=== PATIENT | male | born 1995 | race Caucasian/White ===

== ENCOUNTER 2019-03-14 15:02 | Inpatient (IN) | payer SELFPAY ==
[2019-03-14 15:53] VITALS: BMI 27.8
--- NOTE | 2019-03-14 17:50 | HP ---
COWS - Scale Resting Pulse: 0= [place] 80 or Below Sweatin= Chills/Flushing Restless Observation: 1= Difficult to Sit Still Pupil Size: 1= Pupils >than Normal Bone or Joint Aches: 1= Mild Discomfort Runny Nose/ Eye Tearin= Runny Nose/Eyes GI Upset > 30mins: 2= Nausea/Diarrhea Tremor Observation: 1= Tremor [place], Not Seen Yawning Observation: 1= 1-2x During Session Anxiety or Irritability: 1=Feels Anxious/Irritable Goose Flesh Skin: 0=Smooth Skin COWS Score: 11 CIWA Score - Admission Criteria OASAS Guidelines: Admission for Medically Managed Detox: Requires at least one of the followin. CIWA greater than 12 2. Seizures within the past 24 hours 3. Delirium tremens within the past 24 hours 4. Hallucinations within the past 24 hours 5. Acute intervention needed for co occurring medical disorder 6. Acute intervention needed for co occurring psychiatric disorder 7. Severe withdrawal that cannot be handled at a lower level of care (continued vomiting, continued diarrhea, abnormal vital signs) requiring intravenous medication and/or fluids 8. Admitting History and Physical - Smoking History Smoking history: Current every day smoker Have you smoked in the past 12 months: Yes Aproximately how many cigarettes per day: 6 - Alcohol/Substance Use Hx Alcohol Use: No Admission ROS [facility] - [facility] Chief Complaint: Wei Emery is a 24 year old male who is presenting for heroin detox. Allergies/Adverse Reactions: Allergies Allergy/AdvReac Type Severity Reaction Status Date / Time No Known Allergies Allergy Verified 03/14/19 15:48 History of Present Illness: Wei Emery is a 24 year old male who is presenting for heroin detox. Heroin: 4-5 bags per day. Last use was this morning before arrival. Has been using for a year and a half. Denies history of overdose. Denies having a Narcan kit at home. Withdrawal symptoms: tremors, muscle aches, nausea,vomiting, diarrhea. Has never been on methadone program. Tried to be on methadone program but has been denied. Cocaine: half a gram. last Thursday. Uses when he has heroin withdrawal symptoms. Cannabis: former everyday user. Now uses approx 1 once weekly. Denies alcohol use. Has never been to detox. Was in [facility] for outpatient rehab. Sent over since he continued to use. Currently in legal trouble (drug related) and in [facility] for mandated treatment. Plans after detox: wants to go to rehab (inpatient), wants a methadone maintenance program. 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 Currently unemployed. Had money saved up that he was using to pay for his addiction. Lived with aunt. Family is supportive. Smokin-10 cigarettes per day. Counseled on Narcan use. Counseled on cigarette smoking quitting. Patient willing to go to rehab after detox to "get my life back and go back to my job". Has appointment at [facility]. Needs to go to make sure that it is an intake appointment for methadone maintenance program. Exam Limitations: No Limitations - Ebola screening Have you traveled outside of the country in the last 21 days: No Have you had contact with anyone from an Ebola affected area: No Patient History - Patient Medical History Hx Anemia: No Hx Asthma: No Hx Chronic Obstructive Pulmonary Disease (COPD): No Hx Cancer: No Hx Cardiac Disorders: No Hx Congestive Heart Failure: No Hx Hypertension: No Hx Hypercholesterolemia: No Hx Pacemaker: No HX Cerebrovascular Accident: No Hx Seizures: No Hx Dementia: No Hx Diabetes: No Hx Gastrointestinal Disorders: No Hx Liver Disease: No Hx Genitourinary Disorders: No Hx Sexually Transmitted Disorders: No Hx Renal Disease (ESRD): No Hx Thyroid Disease: No Hx Human Immunodeficiency Virus (HIV): No Hx Hepatitis C: No Hx Depression: Yes (no meds, never hospitalized) Hx Suicide Attempt: No Hx Bipolar Disorder: No Hx Schizophrenia: No - Patient Surgical History Past Surgical History: No - PPD History Previous Implant?: No Documented Results: Negative w/o proof PPD to be Administered?: Yes - Smoking Cessation Smoking history: Current every day smoker Have you smoked in the past 12 months: Yes Aproximately how many cigarettes per day: 10 Hx Chewing Tobacco Use: No Initiated information on smoking cessation: Yes 'Breaking Loose' booklet given: 03/14/19 - Substances abused Heroin Substance route: Inhalation Frequency: Daily Amount used: 7 bags Age of first use: 22 Date of last use: 03/14/19 Cocaine Substance route: Inhalation Frequency: 1-2 times per week Amount used: less than half a gram Age of first use: 22 Date of last use: 01/08/19 Marijuana/Hashish Substance route: Smoking Frequency: Daily Amount used: 4 joints Age of first use: 16 Date of last use: 01/10/19 Admission Physical Exam [facility] - Vital Signs Vital Signs: Vital Signs - 24 hr 03/14/19 15:47 Temperature 97.4 F L Pulse Rate 61 Respiratory 18 Rate Blood Pressure 125/63 - Physical General Appearance: Yes: Nourished, Mild Distress HEENTM: Yes: Normal ENT Inspection, Normal Voice, RAMEZ, Pharynx Normal Respiratory: Yes: Chest Non-Tender, Lungs Clear, Normal Breath Sounds, No Respiratory Distress, No Accessory Muscle Use Neck: Yes: No masses,lesions,Nodules, Trachea in good position Breast: Yes: Breast Exam Deferred Cardiology: Yes: Regular Rhythm, Regular Rate, S1, S2 Abdominal: Yes: Normal Bowel Sounds, Flat, Soft, Tenderness (mild tenderness in epigastric region) Back: Yes: Normal Inspection Musculoskeletal: Yes: full range of Motion, Gait Steady Extremities: Yes: Normal Capillary Refill, Normal Inspection, Normal Range of Motion, Non-Tender Neurological: Yes: workers compensation defense attorney II-XII NML intact, Fully Oriented, Alert, Motor Strength 5/5, Normal Mood/Affect, Normal Response Integumentary: Yes: Normal Color, Dry, Warm - Diagnostic (1) Cannabis dependence Current Visit: No Status: Chronic Comment: counseled cessation - to attend [facility] groups (2) Cocaine use Current Visit: No Status: Chronic Comment: counseled cessation (3) Nicotine dependence Current Visit: No Status: Chronic Qualifiers: Nicotine product type: cigarettes Substance use status: uncomplicated Qualified Code(s): F17.210 - Nicotine dependence, cigarettes, uncomplicated Comment: counseled cessation (4) Opioid dependence with withdrawal Current Visit: No Status: Chronic Comment: discussed various MATs - he wants to try suboxone - will give tabs as lease expensive- he has labwork to bring next visits- cont to attend [facility] groups - explained how to take the suboxone tablets - safekeeping emphasized (lives alone in a room) Cleared for Admission [facility] - Detox or Rehab [facility] Level of Care: Medically Managed Detox Regimen/Protocol: Methadone Breathalyzer - Breathalyzer Breathalyzer: 0 Urine Drug Screen - Test Device Lot number: [id number] Expiration date: 11/12/20 - Control Is test valid?: Yes - Results Drug screen NEGATIVE: Yes Urine drug screen results: THC-Marijuana, TIMA-Cocaine, FEN-Fentanyl, MOP-Opiates Inpatient Rehab Admission - Rehab Decision to Admit Inpatient rehab admission?: No
--- NOTE | 2019-03-14 18:06 | PN ---
Teaching Attending Note Name of Resident: Mynor Brower ATTENDING PHYSICIAN STATEMENT I saw and evaluated the patient. I reviewed the resident's note and discussed the case with the resident. I agree with the resident's findings and plan as documented. SUBJECTIVE: 24 yo using heroin 4-5 bags/day, IH. Uses cocaine and THC. Referred here by [facility]. Vital Signs - 24 hr 03/14/19 15:47 Temperature 97.4 F L Pulse Rate 61 Respiratory 18 Rate Blood Pressure 125/63 alert and oriented tremulous ASSESSMENT AND PLAN: Opioid use disorder- heroin detox protocol Pt would like to start methadone based treatment- pt would like to go to [place]
[2019-03-14] MEDS ORDERED: BISMUTH SUBSALICYLATE 524 MG/30 ML UD PO PRN (18:13)
[2019-03-14] MEDS ORDERED: IBUPROFEN 400 MG TABLET (FP) PO PRN (18:13)
[2019-03-14] MEDS ORDERED: MAG HYDROX/AL HYDROX/SIMETH 30 ML UNIT-DOSE CUP PO PRN (18:13)
[2019-03-14] MEDS ORDERED: ACETAMINOPHEN 325 MG TABLET (FP) PO PRN ×2 (18:13)
[2019-03-14] MEDS ORDERED: MENTHOL/PHENOL 1 EACH UD MM PRN (18:13)
[2019-03-14] MEDS ORDERED: MELATONIN 5 MG TABLETS PO PRN (18:13)
[2019-03-14] MEDS ORDERED: MAGNESIUM HYDROX 2400MG/30ML ORAL SUSPENSION 30 ML CUP PO PRN (18:13)
[2019-03-14] MEDS ORDERED: cloNIDine HCL 0.1 MG TABLET PO PRN (18:13)
[2019-03-14] MEDS ORDERED: MAGNESIUM CITRATE 300 ML BOTTLE PO PRN (18:13)
[2019-03-14] MEDS ORDERED: METHADONE HCL 10 MG TABLET (FOR DETOX USE ONLY) PO ONE (19:00)
[2019-03-14] MEDS: THIAMINE HCL 100 MG TABLET (FP) PO SCH (21:38)
[2019-03-15] MEDS: hydrOXYzine PAMOATE 25 MG CAPSULE (FP) PO PRN ×2 (06:08→22:11)
[2019-03-15] MEDS: METHOCARBAMOL 500 MG TABLET PO PRN ×2 (06:08→22:11)
[2019-03-15] MEDS ORDERED: METHADONE HCL 5 MG TABLET (FOR DETOX USE ONLY) ONE (08:55)
[2019-03-15] MEDS ORDERED: METHADONE HCL 10 MG TABLET (FOR DETOX USE ONLY) ONE (08:55)
[2019-03-15] MEDS: PRENATAL VITAMINS W/ FOLIC ACID TABLET (FP) PO SCH (09:07)
[2019-03-15] MEDS: NICOTINE 14 MG/24 HOURS TOPICAL PATCH TD SCH (09:08)
[2019-03-15] MEDS ORDERED: METHADONE (DETOX) 20 MG, METHADONE (DETOX) 5 MG PO ONE (10:00)
--- NOTE | 2019-03-15 11:20 | PN ---
[facility] COWS - Scale Resting Pulse: 0= [place] 80 or Below Sweatin= No chills or Flushing Restless Observation: 1= Difficult to Sit Still Pupil Size: 1= Pupils >than Normal Bone or Joint Aches: 2= Severe Diffuse Aches Runny Nose/ Eye Tearin= Nasal Congestion GI Upset > 30mins: 1= Stomach Cramp Tremor Observation of Outstretched Hands: 1= Tremor [place], Not Seen Yawning Observation: 1= 1-2x During Session Anxiety or Irritability: 2=Irritable/Anxious Goose Flesh Skin: 0=Smooth Skin COWS Score: 10 S Progress Note (SOAP) Subjective: alert,irritable,anxious,interrupted sleep,pain in the body and back Objective: 03/15/19 11:18 Vital Signs Temperature 98.2 F 03/15/19 09:35 Pulse Rate 57 L 03/15/19 09:35 Respiratory Rate 16 03/15/19 09:35 Blood Pressure 133/63 03/15/19 09:35 O2 Sat by Pulse Oximetry (%) 03/15/19 11:19 labs pending Assessment: 03/15/19 11:19 withdrawal symptom Plan: continue detox methadone regimen
[2019-03-15 12:10] LABS: HEMOGLOBIN 14.3 GM/dL (11.7-16.9); MCH 29.6 pg (25.7-33.7); MCHC 34.9 g/dl (32.0-35.9); MEAN CELL VOLUME 84.6 fl (80-96); MEAN PLT VOLUME 9.3 fl (7.5-11.1); PLATELET COUNT 170 K/MM3 (134-434); RBC 4.85 M/mm3 (4.00-5.60); RDW 13.2 % (11.9-15.9); WHITE BLOOD COUNT 6.1 K/mm3 (4.0-10.0)
[2019-03-15 12:33] LABS: ALBUMIN 4.1 g/dl (3.4-5.0); BILIRUBIN,TOTAL 0.5 mg/dL (0.2-1); BLOOD UREA NITROGEN 8.9 mg/dL (7-18); CALCIUM 9.5 mg/dL (8.5-10.1); CREATININE 0.8 mg/dL (0.55-1.3); TOT PROT 7.5 g/dl (6.4-8.2)
[2019-03-15 13:22] LABS: SICKLE CELL SCREEN NEGATIVE (NEGATIVE)
[2019-03-15 14:50] LABS: RPR NONREACTIVE (NONREACTIVE)
[2019-03-15] MEDS: THIAMINE HCL 100 MG TABLET (FP) PO SCH (22:10)
[2019-03-16 09:16] VITALS: BP 132/70; PULSE 78; TEMP 98.3
[2019-03-16] MEDS: METHADONE HCL 10 MG TABLET (FOR DETOX USE ONLY) PO ONE ×2 (10:37→10:42)
[2019-03-16] MEDS: PRENATAL VITAMINS W/ FOLIC ACID TABLET (FP) PO SCH ×2 (10:37→10:41)
[2019-03-16] MEDS: NICOTINE 14 MG/24 HOURS TOPICAL PATCH TD SCH ×2 (10:37→10:41)
[2019-03-16] MEDS: hydrOXYzine PAMOATE 25 MG CAPSULE (FP) PO PRN (10:42)
--- NOTE | 2019-03-16 11:23 | PN ---
[facility] COWS - Scale Resting Pulse: 0= [place] 80 or Below Sweatin= No chills or Flushing Restless Observation: 1= Difficult to Sit Still Pupil Size: 1= Pupils >than Normal Bone or Joint Aches: 1= Mild Discomfort Runny Nose/ Eye Tearin= Nasal Congestion GI Upset > 30mins: 1= Stomach Cramp Tremor Observation of Outstretched Hands: 1= Tremor [place], Not Seen Yawning Observation: 1= 1-2x During Session Anxiety or Irritability: 1=Feels Anxious/Irritable Goose Flesh Skin: 0=Smooth Skin COWS Score: 8 [facility] Progress Note (SOAP) Subjective: alert,irritable,anxious,interrupted sleep,pain in the body and back Objective: 03/16/19 11:21 Vital Signs Temperature 98.3 F 03/16/19 09:15 Pulse Rate 78 03/16/19 09:15 Respiratory Rate 18 03/16/19 09:15 Blood Pressure 132/70 03/16/19 09:15 O2 Sat by Pulse Oximetry (%) Laboratory Last Values WBC 6.1 K/mm3 (4.0-10.0) 03/15/19 08:45 RBC 4.85 M/mm3 (4.00-5.60) 03/15/19 08:45 Hgb 14.3 GM/dL (11.7-16.9) 03/15/19 08:45 Hct 41.0 % (35.4-49) 03/15/19 08:45 MCV 84.6 fl (80-96) 03/15/19 08:45 MCH 29.6 pg (25.7-33.7) 03/15/19 08:45 MCHC 34.9 g/dl (32.0-35.9) 03/15/19 08:45 RDW 13.2 % (11.9-15.9) 03/15/19 08:45 Plt Count 170 K/MM3 (134-434) 03/15/19 08:45 MPV 9.3 fl (7.5-11.1) 03/15/19 08:45 Sickle Cell Screen Negative (NEGATIVE) 03/15/19 08:45 Sodium 138 mmol/L (136-145) 03/15/19 08:45 Potassium 4.0 mmol/L (3.5-5.1) 03/15/19 08:45 Chloride 104 mmol/L (98-107) 03/15/19 08:45 Carbon Dioxide 27 mmol/L (21-32) 03/15/19 08:45 Anion Gap 7 MMOL/L (8-16) L 03/15/19 08:45 BUN 8.9 mg/dL (7-18) 03/15/19 08:45 Creatinine 0.8 mg/dL (0.55-1.3) 03/15/19 08:45 Est GFR (CKD-EPI)AfAm 145.93 03/15/19 08:45 Est GFR (CKD-EPI)NonAf 125.91 03/15/19 08:45 Random Glucose 80 mg/dL (74-106) 03/15/19 08:45 Calcium 9.5 mg/dL (8.5-10.1) 03/15/19 08:45 Total Bilirubin 0.5 mg/dL (0.2-1) 03/15/19 08:45 AST 12 U/L (15-37) L 03/15/19 08:45 ALT 25 U/L (13-61) 03/15/19 08:45 Alkaline Phosphatase 102 U/L (45-117) 03/15/19 08:45 Total Protein 7.5 g/dl (6.4-8.2) 03/15/19 08:45 Albumin 4.1 g/dl (3.4-5.0) 03/15/19 08:45 RPR Titer Nonreactive (NONREACTIVE) 03/15/19 08:45 HIV 1&2 Antibody Screen Negative 03/15/19 08:45 HIV P24 Antigen Negative 03/15/19 08:45 Assessment: 03/16/19 11:22 withdrawal symptom Plan: continue detox methadone regimen
--- NOTE | 2019-03-16 11:26 | PN ---
[facility] Progress Note Note: patient did not want to stay,high risk of relapsing explained,patient understood ,signed AMA, advise to call 911 if not feeling well
--- NOTE | 2019-03-16 11:28 | DS ---
[facility] Detox Discharge Summary Admission Date: 03/14/19 Discharge Date: 03/16/19 - History Present History: Cannabis Dependence, Cocaine Dependence, Opioid Dependence Additional Comments: patient signed release AMA Pertinent Past History: nicotine dependence - Physical Exam Results Vital Signs: Vital Signs Temperature 98.3 F 03/16/19 09:15 Pulse Rate 78 03/16/19 09:15 Respiratory Rate 18 03/16/19 09:15 Blood Pressure 132/70 03/16/19 09:15 O2 Sat by Pulse Oximetry (%) Pertinent Admission Physical Exam Findings: withdrawal signs and symptom Vital Signs Temperature 98.3 F 03/16/19 09:15 Pulse Rate 78 03/16/19 09:15 Respiratory Rate 18 03/16/19 09:15 Blood Pressure 132/70 03/16/19 09:15 O2 Sat by Pulse Oximetry (%) Laboratory Last Values WBC 6.1 K/mm3 (4.0-10.0) 03/15/19 08:45 RBC 4.85 M/mm3 (4.00-5.60) 03/15/19 08:45 Hgb 14.3 GM/dL (11.7-16.9) 03/15/19 08:45 Hct 41.0 % (35.4-49) 03/15/19 08:45 MCV 84.6 fl (80-96) 03/15/19 08:45 MCH 29.6 pg (25.7-33.7) 03/15/19 08:45 MCHC 34.9 g/dl (32.0-35.9) 03/15/19 08:45 RDW 13.2 % (11.9-15.9) 03/15/19 08:45 Plt Count 170 K/MM3 (134-434) 03/15/19 08:45 MPV 9.3 fl (7.5-11.1) 03/15/19 08:45 Sickle Cell Screen Negative (NEGATIVE) 03/15/19 08:45 Sodium 138 mmol/L (136-145) 03/15/19 08:45 Potassium 4.0 mmol/L (3.5-5.1) 03/15/19 08:45 Chloride 104 mmol/L (98-107) 03/15/19 08:45 Carbon Dioxide 27 mmol/L (21-32) 03/15/19 08:45 Anion Gap 7 MMOL/L (8-16) L 03/15/19 08:45 BUN 8.9 mg/dL (7-18) 03/15/19 08:45 Creatinine 0.8 mg/dL (0.55-1.3) 03/15/19 08:45 Est GFR (CKD-EPI)AfAm 145.93 03/15/19 08:45 Est GFR (CKD-EPI)NonAf 125.91 03/15/19 08:45 Random Glucose 80 mg/dL (74-106) 03/15/19 08:45 Calcium 9.5 mg/dL (8.5-10.1) 03/15/19 08:45 Total Bilirubin 0.5 mg/dL (0.2-1) 03/15/19 08:45 AST 12 U/L (15-37) L 03/15/19 08:45 ALT 25 U/L (13-61) 03/15/19 08:45 Alkaline Phosphatase 102 U/L (45-117) 03/15/19 08:45 Total Protein 7.5 g/dl (6.4-8.2) 03/15/19 08:45 Albumin 4.1 g/dl (3.4-5.0) 03/15/19 08:45 RPR Titer Nonreactive (NONREACTIVE) 03/15/19 08:45 HIV 1&2 Antibody Screen Negative 03/15/19 08:45 HIV P24 Antigen Negative 03/15/19 08:45 - Medication Discharge Medications: Ambulatory Orders NK [No Known Home Medication] 03/14/19 - Diagnosis (1) Cannabis dependence Current Visit: No Status: Chronic (2) Cocaine use Current Visit: No Status: Chronic (3) Nicotine dependence Current Visit: No Status: Chronic Qualifiers: Nicotine product type: cigarettes Substance use status: uncomplicated Qualified Code(s): F17.210 - Nicotine dependence, cigarettes, uncomplicated (4) Opioid dependence with withdrawal Current Visit: No Status: Chronic - AMA Did Patient Leave Against Medical Advice: Yes
[2019-03-17] MEDS ORDERED: METHADONE (DETOX) 10 MG, METHADONE (DETOX) 5 MG PO ONE (10:00)
[2019-03-18] MEDS ORDERED: METHADONE HCL 10 MG TABLET (FOR DETOX USE ONLY) PO ONE (10:00)
[2019-03-19] MEDS ORDERED: METHADONE HCL 5 MG TABLET (FOR DETOX USE ONLY) PO ONE (06:00)
== END 2019-03-16 12:27 | disposition left against medical advice (07) | DRG 770 ==
LOC: YASAS 15:02 → Y6N 18:44
PROVIDERS: ADMIT Surgery; ATTEND Surgery
PROC: HZ2ZZZZ Detoxification Services for Substance Abuse Treatment (ICD-10-PCS; principal; 2019-03-14)
DX: F11.23 Opioid dependence with withdrawal (principal); F12.20 Cannabis dependence, uncomplicated; F14.90 Cocaine use, unspecified, uncomplicated; F17.210 Nicotine dependence, cigarettes, uncomplicated; G25.1 Drug-induced tremor
CPT/HCPCS: 36415; 80053; 85027; 85660; 86593; 87389